=== PATIENT | male | born 1930 | race Caucasian/White ===

== ENCOUNTER 2017-12-08 15:33 | Emergency (ER) | payer MEDICARE, BC ==
[2017-12-08] MEDS ORDERED: Sodium Chloride 0.9% 2.5 ML Syringe FLUSH PRN (16:02)
[2017-12-08] MEDS ORDERED: Sodium Chloride 0.9% 10 ML Syringe FLUSH PRN (16:02)
--- NOTE | 2017-12-08 16:02 | EDM.PDOC ---
ED HPI GENERAL MEDICAL PROBLEM - General Chief Complaint: Skin Complaint Stated Complaint: NOT FEELING WELL Time Seen by Provider: 12/08/17 16:02 Source of Information: Reports: Patient History Limitations: Reports: No Limitations - History of Present Illness INITIAL COMMENTS - FREE TEXT/NARRATIVE: HISTORY AND PHYSICAL: History of present illness: Patient is an 87-year-old male who presents to the emergency room today with complaints of penile and rectal pain. He states that he has been seeing Dr. Salinas for a "prostate infection" since November 22, 2017. He states he has been on Cipro and Levaquin for this infection but feels that is unresolved. He is here today as he is unable to get into the urologist for "2 months". He is concerned as he is having pain and burning/stinging sensation to his penis. Reports he is voiding without difficulty and routinely. Denies any change in his bowel habits. Denies any abdominal pain, nausea, vomiting or diarrhea. Denies any fever or chills. Review of systems: As per history of present illness and below otherwise all systems reviewed and negative. Past medical history: As per history of present illness and as reviewed below otherwise noncontributory. Surgical history: As per history of present illness and as reviewed below otherwise noncontributory. Social history: No reported history of drug or alcohol abuse. Family history: As per history of present illness and as reviewed below otherwise noncontributory. Physical exam: Gen.: Well-developed and well-nourished 87-year-old male. Alert and oriented. Nontoxic appearing and in no acute distress. HEENT: Atraumatic, normocephalic, pupils reactive, negative for conjunctival pallor or scleral icterus, mucous membranes moist, throat clear, neck supple, nontender, trachea midline. Lungs: Clear to auscultation, breath sounds equal bilaterally, chest nontender. Heart: S1S2, regular, negative for clicks, rubs, or JVD. Abdomen: Soft, nondistended, nontender. Negative for masses or hepatosplenomegaly. Negative for costovertebral tenderness. Pelvis: Stable nontender. Genitourinary: This was done with case reviewer. There is no erythema or swelling noted to the meatus, penis shaft, scrotum or rectum. Nontender with palpation. Rectal: This was done with a case reviewer. No external or internal hemorrhoids noted. Good rectal tone. Extremities: Atraumatic, moves all extremities per self. Neurovascular unremarkable. Neuro: Awake, alert, oriented. Cranial nerves II through XII unremarkable. Cerebellum unremarkable. Motor and sensory unremarkable throughout. Exam nonfocal. Pain is not associated with urination or defecating. Labs were reviewed. Urine culture was added to the labs today. CBC and CMP are within normal limits. Discussed this with family. Continue Levaquin. Encouraged close follow-up with the urologist, Dr. Salinas. Both patient and voice understanding and are agreeable to plan of care. They deny any questions at this time. Diagnostics: CBC, CMP, blood culture, UA Therapeutics: [] Impression: Hx of prostatitis Medical Screening Exam Plan: 1. Continue your antibiotics as prescribed by Dr. Salinas. May use Tylenol and Ibuprofen as needed for pain and fever management. 2. Follow-up with Dr. Brink as you already have planned. 3. Return to the ED as needed and as discussed. Definitive disposition and diagnosis as appropriate pending reevaluation and review of above. Onset: Today Duration: Day(s): Location: Reports: Pelvis Penis Pain Score (Numeric/FACES): 4 - Related Data Allergies Allergy/AdvReac Type Severity Reaction Status Date / Time No Known Allergies Allergy Verified 12/08/17 15:47 Home Meds: Home Meds Ca Carbonate/Vitamin D3/Vit K [Calcium + D Soft Chewable Tab] 12/08/17 [History ] Cholecalciferol (Vitamin D3) [Vitamin D3] 12/08/17 [History] Doxazosin [Doxazosin Mesylate] 4 mg PO DAILY 12/08/17 [History] Glucosamine/Msm/Chondroitin A [Glucosamine Chondroit MSM Tab] 12/08/17 [History ] Hydrochlorothiazide 25 mg PO DAILY 12/08/17 [History] Levofloxacin [Levaquin] 500 mg 12/08/17 [History] Metoprolol Succinate 12/08/17 [History] Ramipril 10 mg BID 12/08/17 [History] amLODIPine Besylate [Amlodipine Besylate] 10 mg 12/08/17 [History] atorvaSTATin [Lipitor] 20 mg PO BEDTIME 12/08/17 [History] Past Medical History Cardiovascular History: Reports: High Cholesterol, Hypertension Other Psychiatric History: nervous - Infectious Disease History Infectious Disease History: Reports: Chicken Pox, Measles - Past Surgical History HEENT Surgical History: Reports: Adenoidectomy, Tonsillectomy GI Surgical History: Reports: Appendectomy Male Surgical History: Reports: TURP-Transurethral Resection of Prostate Social & Family History - Family History Family Medical History: Noncontributory - Tobacco Use Smoking Status *Q: Never Smoker Second Hand Smoke Exposure: No - Caffeine Use Caffeine Use: Reports: Coffee - Recreational Drug Use Recreational Drug Use: No ED ROS GENERAL - Review of Systems Review Of Systems: ROS reveals no pertinent complaints other than HPI. ED EXAM, SKIN/RASH Exam: See Below (See dictation) Course - Vital Signs Last Recorded V/S: Last Vital Signs Temp 98.8 F 12/08/17 15:42 Pulse 83 12/08/17 15:42 Resp 18 12/08/17 15:42 BP 129/67 12/08/17 15:42 Pulse Ox 95 12/08/17 15:42 - Orders/Labs/Meds Orders: Active Orders 24 hr Category Date Time Status COMPREHENSIVE METABOLIC PN,CMP [CHEM] Stat Lab 12/08/17 16:20 Received CULTURE BLOOD [BC] Stat Lab 12/08/17 16:13 Results CULTURE BLOOD [BC] Stat Lab 12/08/17 16:20 Received CULTURE URINE [RM] Stat Lab 12/08/17 17:04 Uncollected Sodium Chloride 0.9% [Saline Flush] Med 12/08/17 16:02 Active 10 ml FLUSH ASDIRECTED PRN Sodium Chloride 0.9% [Saline Flush] Med 12/08/17 16:02 Active 2.5 ml FLUSH ASDIRECTED PRN Blood Culture x2 Reflex Set [OM.PC] Stat Oth 12/08/17 16:02 Ordered Saline Lock Insert [OM.PC] Stat Oth 12/08/17 16:02 Ordered Medication Orders Sodium Chloride (Saline Flush) 10 ml FLUSH ASDIRECTED PRN PRN Reason: Keep Vein Open Last Admin: 12/08/17 16:15 Dose: 10 ml Sodium Chloride (Saline Flush) 2.5 ml FLUSH ASDIRECTED PRN PRN Reason: Keep Vein Open Last Admin: 12/08/17 16:16 Dose: 2.5 ml Labs: Laboratory Tests 12/08/17 12/08/17 Range/Units 16:20 16:35 WBC 8.16 (4.0-11.0) K/uL RBC 4.87 (4.50-5.90) M/uL Hgb 14.8 (13.0-17.0) g/dL Hct 42.9 (38.0-50.0) % MCV 88.1 (80.0-98.0) fL MCH 30.4 (27.0-32.0) pg MCHC 34.5 (31.0-37.0) g/dL RDW Std Deviation 46.7 (28.0-62.0) fl RDW Coeff of Lakshmi 15 (11.0-15.0) % Plt Count 176 (150-400) K/uL MPV 8.90 (7.40-12.00) fL Neut % (Auto) 77.2 (48.0-80.0) % Lymph % (Auto) 10.9 L (16.0-40.0) % [place] % (Auto) 11.0 (0.0-15.0) % Eos % (Auto) 0.7 (0.0-7.0) % Baso % (Auto) 0.2 (0.0-1.5) % Neut # (Auto) 6.3 H (1.4-5.7) K/uL Lymph # (Auto) 0.9 (0.6-2.4) K/uL [place] # (Auto) 0.9 H (0.0-0.8) K/uL Eos # (Auto) 0.1 (0.0-0.7) K/uL Baso # (Auto) 0.0 (0.0-0.1) K/uL Nucleated RBC % 0.0 /100WBC Nucleated RBCs # 0 K/uL Urine Color YELLOW Urine Appearance CLEAR Urine pH 6.0 (5.0-8.0) Ur Specific [place] 1.020 (1.001-1.035) Urine Protein NEGATIVE (NEGATIVE) mg/dL Urine Glucose (UA) NEGATIVE (NEGATIVE) mg/dL Urine Ketones NEGATIVE (NEGATIVE) mg/dL Urine Occult Blood NEGATIVE (NEGATIVE) Urine Nitrite NEGATIVE (NEGATIVE) Urine Bilirubin NEGATIVE (NEGATIVE) Urine Urobilinogen 0.2 (<2.0) EU/dL Ur Leukocyte Esterase NEGATIVE (NEGATIVE) Urine RBC 1-2 (0-2/HPF) Urine WBC 2-4 (0-5/HPF) Ur Epithelial Cells FEW (NONE-FEW) Urine Bacteria FEW (NEGATIVE) Meds: Medications Generic Name Dose Route Start Last Admin Trade Name Antonio PRN Reason Stop Dose Admin Sodium Chloride 10 ml 12/08/17 16:02 12/08/17 16:15 Saline Flush FLUSH 10 ml ASDIRECTED PRN Administration Keep Vein Open Sodium Chloride 2.5 ml 12/08/17 16:02 12/08/17 16:16 Saline Flush FLUSH 2.5 ml ASDIRECTED PRN Administration Keep Vein Open Departure - Departure Time of Disposition: 17:08 Disposition: Home, Self-Care 01 Clinical Impression: History of prostatitis, Encounter for medical screening examination - Discharge Information Referrals: Samy Fernandez MD [Primary Care Provider] - Forms: ED Department Discharge Additional Instructions: My general discharge The following information is given to patients seen in the emergency department who are being discharged to home. This information is to outline your options for follow-up care. We provide all patients seen in our emergency department with a follow-up referral. The need for follow-up, as well as the timing and circumstances, are variable depending upon the specifics of your emergency department visit. If you don't have a primary care physician on staff, we will provide you with a referral. We always advise you to contact your personal physician following an emergency department visit to inform them of the circumstance of the visit and for follow-up with them and/or the need for any referrals to a consulting specialist. The emergency department will also refer you to a specialist when appropriate. This referral assures that you have the opportunity for follow-up care with a specialist. All of these measure are taken in an effort to provide you with optimal care, which includes your follow-up. Under all circumstances we always encourage you to contact your private physician who remains a resource for coordinating your care. When calling for follow-up care, please make the office aware that this follow-up is from your recent emergency room visit. If for any reason you are refused follow-up, please contact the [facility] Emergency Department at and asked to speak to the emergency department charge nurse. [facility] - Urology [address] [place] [id number] 1. Continue your antibiotics as prescribed by Dr. Salinas. May use Tylenol and Ibuprofen as needed for pain and fever management. 2. Follow-up with Dr. Salinas as you already have planned. 3. Return to the ED as needed and as discussed. - My Orders Last 24 Hours: My Active Orders 12/08/17 16:02 Sodium Chloride 0.9% [Saline Flush] 10 ml FLUSH ASDIRECTED PRN Sodium Chloride 0.9% [Saline Flush] 2.5 ml FLUSH ASDIRECTED PRN Blood Culture x2 Reflex Set [OM.PC] Stat Saline Lock Insert [OM.PC] Stat 12/08/17 16:13 CULTURE BLOOD [BC] Stat 12/08/17 16:20 COMPREHENSIVE METABOLIC PN,CMP [CHEM] Stat CULTURE BLOOD [BC] Stat 12/08/17 17:04 CULTURE URINE [RM] Stat - Assessment/Plan Last 24 Hours: My Active Orders 12/08/17 16:02 Sodium Chloride 0.9% [Saline Flush] 10 ml FLUSH ASDIRECTED PRN Sodium Chloride 0.9% [Saline Flush] 2.5 ml FLUSH ASDIRECTED PRN Blood Culture x2 Reflex Set [OM.PC] Stat Saline Lock Insert [OM.PC] Stat 12/08/17 16:13 CULTURE BLOOD [BC] Stat 12/08/17 16:20 COMPREHENSIVE METABOLIC PN,CMP [CHEM] Stat CULTURE BLOOD [BC] Stat 12/08/17 17:04 CULTURE URINE [RM] Stat
[2017-12-08 16:54] LABS: CHLORIDE,CL 102 mmol/L (98-110); SODIUM,NA 136 mmol/L (136-146)
== END 2017-12-08 17:40 | disposition home or self-care (01) ==
LOC: MW.ED 15:33
DX: N41.9 Inflammatory disease of prostate, unspecified (principal); E78.00 Pure hypercholesterolemia, unspecified; I10 Essential (primary) hypertension; Z79.899 Other long term (current) drug therapy
CPT/HCPCS: 36415; 80053; 81001; 85025; 87040; 87086; 99283; 99284